=== PATIENT | male | born 1950 ===

== ENCOUNTER 2024-01-21 05:45 | Day surgery (SDC) | payer OTHER ==
[2024-01-21] MEDS ORDERED: MIDAZOLAM HCL 2 MG/2 ML VIAL IV ONE (09:00)
[2024-01-21] MEDS ORDERED: fentaNYL CITRATE 50 MCG/ML AMPUL IV PUSH ONE (09:00)
== END 2024-01-21 09:55 | disposition home or self-care (01) ==
LOC: AMB-ENDOS 05:45 → CIR.AMB 13:30
PROVIDERS: ATTEND Colon & Rectal Surgery
DX: K63.5 Polyp of colon (principal); D12.6 Benign neoplasm of colon, unspecified; Z86.010 Personal history of colon polyps